=== PATIENT | female | born 1955 | race Asian ===

== ENCOUNTER 2017-08-15 18:06 | Emergency (ER) | payer OTHER ==
[2017-08-15] MEDS ORDERED: cefTRIAXone 1 GM VIAL IM STA (19:12)
[2017-08-15] MEDS ORDERED: LIDOCAINE 1% 2 ML VIAL SUBQ ONE (19:12)
--- NOTE | 2017-08-15 19:14 | ED Physician Documentation ---
History of Present Illness - Stated complaint Stated Complaint: FEMALE - Chief complaint Chief Complaint: General - History obtained from History obtained from: Patient, Family - History of Present Illness Timing: How many weeks ago (2) Pain level max: 5 Pain level now: 3 Improved by: nothing Worsened by: nothing - Additonal information Additional information: frequency and dysuria x 2 weeks. Gross hematuria today. no fevers. no back pain. no abd pain. 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 - Present Medications Home Medications: Ambulatory Orders Medication Instructions Recorded Confirmed Blood Pressure Pill 08/15/17 Cephalexin [Keflex] 500 mg PO Q6H #28 capsule 08/15/17 Cinnamon Bark [Cinnamon] 500 mg PO 08/15/17 Glucosamine Sulfate 08/15/17 Loratadine [Claritin] 10 mg PO 08/15/17 Sames 08/15/17 Tumeric 08/15/17 - Allergies Allergies/Adverse Reactions: Allergies Allergy/AdvReac Type Severity Reaction Status Date / Time No Known Drug Allergies Allergy Verified 08/15/17 18:18 - Social History Does the pt smoke?: No Smoking Status: Never smoker Does the pt drink ETOH?: No Does the pt have substance abuse?: No - Immunizations Immunizations are current?: Yes PD ED PE NORMAL - Vitals Vital signs reviewed: Yes - General General: Alert and oriented X 3, No acute distress, Well developed/nourished - HEENT HEENT: Moist mucous membranes - Neck Neck: Supple, no meningeal sign - Cardiac Cardiac: RRR, Strong equal pulses - Respiratory Respiratory: No respiratory distress, Clear bilaterally - Abdomen Abdomen: Soft, Non tender, Non distended - Back Back: No CVA TTP - Derm Derm: Warm and dry - Neuro Neuro: Alert and oriented X 3 - Psych Psych: Normal mood, Normal affect Results - Vitals Vitals: Vital Signs - 24 hr 08/15/17 08/15/17 18:16 20:17 Temperature 36.8 C 36.5 C Heart Rate 98 106 H Respiratory 18 18 Rate Blood Pressure 148/92 H 135/76 H O2 Saturation 99 97 Oxygen O2 Source Room air - Labs Labs: Laboratory Tests 08/15/17 18:41 Urine Color RED/BLOODY Urine Clarity BLOODY Urine pH 7.0 Ur Specific [place] 1.015 Urine Protein 100 H Urine Glucose (UA) NEGATIVE Urine Ketones NEGATIVE Urine Occult Blood LARGE H Urine Nitrite POSITIVE H Urine Bilirubin NEGATIVE Urine Urobilinogen 0.2 (NORMAL) Ur Leukocyte Esterase MODERATE H Urine RBC TNTC H Urine WBC >25 H Ur Squamous Epith Cells FEW Squamous Urine Bacteria Many H Ur Microscopic Review INDICATED Urine Culture Comments INDICATED PD MEDICAL DECISION MAKING - ED course Complexity details: reviewed results, re-evaluated patient, considered differential, d/w patient, d/w family ED course: Patient is a 61-year-old female presents to the emergency department with what appears to be a UTI with gross hematuria. Given IM Rocephin will place on antibiotics for home. No evidence of pyelonephritis. She is well-appearing, nontoxic. Afebrile. No vomiting. Patient counseled regarding signs and symptoms for which I believe and urgent re-evaluation would be necessary. Patient with good understanding of and agreement to plan and is comfortable going home at this time This document was made in part using voice recognition software. While efforts are made to proofread this document, sound alike and grammatical errors may occur. Departure - Departure Disposition: 01 Home, Self Care Clinical Impression: UTI (urinary tract infection) Qualifiers: Urinary tract infection type: acute cystitis Hematuria presence: with hematuria Qualified Code(s): N30.01 - Acute cystitis with hematuria Condition: Good Instructions: ED UTI Cystitis Female Follow-Up: Geri Pfeiffer MD [Primary Care Provider] - Within 1 week Prescriptions: Cephalexin [Keflex] 500 mg PO Q6H #28 capsule Comments: Take all antibiotics until gone. Return if you worsen. Discharge Date/Time: 08/15/17 20:28
[2017-08-15 19:19] LABS: BILIRUBIN,URINE NEGATIVE (NEGATIVE); CLARITY,URINE BLOODY (CLEAR); GLUCOSE, URINE (UA) NEGATIVE (NEGATIVE); KETONES,URINE (UA) NEGATIVE (NEGATIVE); LEUKOCYTE ESTERASE, URINE MODERATE (NEGATIVE); NITRITE,URINE POSITIVE (NEGATIVE); OCCULT BLOOD,URINE LARGE (NEGATIVE); PROTEIN,URINE 100 mg/dL (NEGATIVE); UROBILINOGEN,URINE 0.2 (NORMAL) E.U./dL (NORMAL)
[2017-08-15 19:24] LABS: BACTERIA,URINE Many /HPF (None Seen); RBC,URINE TNTC /HPF (0-5); SQUAMOUS EPITHELIAL CELL,UR FEW Squamous (<= Few)
[2017-08-15 20:19] VITALS: BP 135/76
== END 2017-08-15 20:28 | disposition home or self-care (01) ==
LOC: ED 18:06
DX: N30.01 Acute cystitis with hematuria (principal); I10 Essential (primary) hypertension
CPT/HCPCS: 81001; 81003; 87086; 96372; 99283

== ENCOUNTER 2020-07-12 19:45 | Emergency (ER) | payer OTHER ==
--- NOTE | 2020-07-12 20:16 | ED Physician Documentation ---
History of Present Illness - Stated complaint Stated Complaint: BLOOD IN URINE/BURNING - Chief complaint Chief Complaint: UTI - History obtained from History obtained from: Patient - History of Present Illness Timing: Today - Additonal information Additional information: 64-year-old female presents to the emergency department with chief complaint of dysuria urgency frequency and hematuria. She is concerned that she may have a urinary tract infection. She feels like she has gone to the bathroom many many times today without finding relief. She reports that she did recently have sexual intercourse with her about 3 days ago and wonders if this could be the cause. She has no fevers vomiting or flank pain. She denies any history of recurrent urinary tract infections or diabetes. No history of renal stones. Review of Systems Constitutional: reports: Reviewed and negative Ears: reports: Reviewed and negative Nose: reports: Reviewed and negative Throat: reports: Reviewed and negative Cardiac: reports: Reviewed and negative Respiratory: reports: Reviewed and negative GI: reports: Reviewed and negative : reports: Dysuria, Frequency, Hematuria Musculoskeletal: reports: Reviewed and negative Neurologic: reports: Reviewed and negative Psychiatric: reports: Reviewed and negative PD PAST MEDICAL HISTORY - Past Medical History Past Medical History: Yes Cardiovascular: Hypertension - Past Surgical History 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 - Present Medications Home Medications: Ambulatory Orders Medication Instructions Recorded Confirmed Blood Pressure Pill 08/15/17 Cinnamon Bark [Cinnamon] 500 mg PO 08/15/17 Sames 08/15/17 Tumeric 08/15/17 Cephalexin [Keflex] 500 mg PO TID #21 capsule 07/12/20 Estradiol 0.05 mg Patch [Climara 1 patch TOP UD 07/12/20 07/12/20 0.05 mg] Oxybutynin Chloride [Ditropan Xl] 10 mg PO DAILY 07/12/20 07/12/20 - Allergies Allergies/Adverse Reactions: Allergies Allergy/AdvReac Type Severity Reaction Status Date / Time No Known Drug Allergies Allergy Verified 07/12/20 19:50 - Social History Does the pt smoke?: No Smoking Status: Never smoker Does the pt drink ETOH?: No Does the pt have substance abuse?: No - Immunizations Immunizations are current?: Yes - POLST Patient has POLST: No PD ED PE NORMAL - General General: Alert and oriented X 3, No acute distress, Well developed/nourished - HEENT HEENT: PERRL - Neck Neck: Supple, no meningeal sign, No adenopathy - Cardiac Cardiac: RRR, No murmur, Strong equal pulses - Respiratory Respiratory: No respiratory distress, Clear bilaterally - Abdomen Abdomen: Normal bowel sounds, Soft. No: Non tender (Mild suprapubic tenderness to palpation. No flank or CVA tenderness. 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 Eye Opening: Spontaneous Motor: Obeys Commands Verbal: Oriented GCS Score: 15 Results - Vitals Vitals: Vital Signs - 24 hr 07/12/20 07/12/20 19:50 19:54 Temperature 36.7 C 36.7 C Heart Rate 79 79 Respiratory 16 16 Rate Blood Pressure 156/91 H 156/91 H O2 Saturation 97 97 Oxygen O2 Source Room air - Labs Labs: Laboratory Tests 07/12/20 19:54 Urine Color DARK YELLOW Urine Clarity CLOUDY Urine pH 6.0 Ur Specific [place] 1.015 Urine Protein TRACE Urine Glucose (UA) NEGATIVE Urine Ketones NEGATIVE Urine Occult Blood LARGE H Urine Nitrite NEGATIVE Urine Bilirubin NEGATIVE Urine Urobilinogen 0.2 (NORMAL) Ur Leukocyte Esterase SMALL H Urine RBC TNTC H Urine WBC 6-10 H Ur Squamous Epith Cells RARE Squamous Urine Bacteria Rare Ur Microscopic Review INDICATED Urine Culture Comments INDICATED PD MEDICAL DECISION MAKING - ED course Complexity details: reviewed results, re-evaluated patient, considered differential, d/w patient ED course: 64-year-old female presents the emergency department with chief complaint of dysuria urgency frequency and sensation of incomplete bladder emptying. Symptoms began this afternoon. She was recently sexually active. She has no fevers flank pain or vomiting. My suspicion for acute pyelonephritis is low. However her urine today is quite suggestive of acute infection. First dose of Keflex given here in the emergency department prescription written upon discharge. emergent return precautions discussed for worsening symptoms. Departure - Departure Disposition: 01 Home, Self Care Clinical Impression: Acute cystitis Qualifiers: Hematuria presence: with hematuria Qualified Code(s): N30.01 - Acute cystitis with hematuria Condition: Stable Record reviewed to determine appropriate education?: Yes Instructions: ED UTI Cystitis Female Follow-Up: Geri Pfeiffer MD [Primary Care Provider] - Prescriptions: Cephalexin [Keflex] 500 mg PO TID #21 capsule Comments: It does appear as though you have an infection in your urine. We have given you your first dose of antibiotic tonight in the emergency department. Tomorrow morning please fill the prescription for the antibiotic and begin taking as directed. It is important to always void after sexual intercourse this can help reduce the frequency of urinary tract infections. Drink lots of water and stay well hydrated. Return to the Emergency department for fevers, uncontrolled vomiting or suddenly severe abdominal pain or if your symptoms fail to improve
[2020-07-12 20:21] LABS: BILIRUBIN,URINE NEGATIVE (NEGATIVE); GLUCOSE, URINE (UA) NEGATIVE (NEGATIVE); KETONES,URINE (UA) NEGATIVE (NEGATIVE); LEUKOCYTE ESTERASE, URINE SMALL (NEGATIVE); NITRITE,URINE NEGATIVE (NEGATIVE); OCCULT BLOOD,URINE LARGE (NEGATIVE); PROTEIN,URINE TRACE mg/dL (NEGATIVE); UROBILINOGEN,URINE 0.2 (NORMAL) E.U./dL (NORMAL)
[2020-07-12 20:39] LABS: BACTERIA,URINE Rare /HPF (None Seen); CLARITY,URINE CLOUDY (CLEAR); RBC,URINE TNTC /HPF (0-5); SQUAMOUS EPITHELIAL CELL,UR RARE Squamous (<= Few)
[2020-07-12] MEDS ORDERED: cephALEXin 250 MG CAPSULE PO STA (20:45)
[2020-07-12] MEDS ORDERED: CEPHALEXIN 250 MG Prepack 8 CAP BOTTLE PO STA (20:48)
[2020-07-12 20:58] VITALS: BP 150/88
== END 2020-07-12 20:57 | disposition home or self-care (01) ==
LOC: ED 19:45
DX: N30.01 Acute cystitis with hematuria (principal)
CPT/HCPCS: 81001; 87086; 87181; 99283; 99284; A9270; 81003

== ENCOUNTER 2020-10-12 11:31 | Outpatient (CLI) | payer OTHER | END 2020-10-12 11:32 | disposition EMS.NT | LOC: EMS 11:31 | DX: R53.83 Other fatigue (principal); R42 Dizziness and giddiness ==

== ENCOUNTER 2020-10-12 19:03 | Emergency (ER) | payer OTHER ==
--- NOTE | 2020-10-12 19:15 | ED Physician Documentation ---
History of Present Illness - Stated complaint Stated Complaint: DIZZY,VOMITING - Chief complaint Chief Complaint: General - History obtained from History obtained from: Patient - History of Present Illness Timing: Enter time (16:00), Yesterday Pain level max: 0 Pain level now: 0 Improved by: no ameliorating factors Worsened by: no exacerbating factors; episodic but she has not noticed a positional/movement component - Additonal information Additional information: c/o sudden onset dizziness described as sensation of room spinning around her even when at rest lying still. this has been episodic since 4 PM yesterday. She also c/o nausea and vomiting although she does not feel that the nausea and vomiting are only present when she is dizzy. She was feeling better today enough that she went to the grocery store but when loading groceries into her car, she again had sudden severe dizziness with sensation of the surroundings spinning around her and she needed help from just to ambulate back in the car. Denies h/o similar symptoms. She had her first COVID vaccine 4 days ago. Review of Systems Constitutional: denies: Fever, Chills, Sweats Eyes: reports: Reviewed and negative Ears: reports: Reviewed and negative Cardiac: reports: Reviewed and negative Respiratory: reports: Reviewed and negative GI: reports: Nausea, Vomiting. 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 - Present Medications Home Medications: Ambulatory Orders Medication Instructions Recorded Confirmed Blood Pressure Pill 08/15/17 Cinnamon Bark [Cinnamon] 500 mg PO 08/15/17 Sames 08/15/17 Tumeric 08/15/17 Estradiol 0.05 mg Patch [Climara 1 patch TOP UD 07/12/20 10/12/20 0.05 mg] Oxybutynin Chloride [Ditropan Xl] 10 mg PO DAILY 07/12/20 10/12/20 cephALEXin [Keflex] 500 mg PO TID #21 capsule 07/12/20 Meclizine [Antivert] 25 mg PO Q6H PRN #14 tablet 10/12/20 Ondansetron Odt [Zofran] 4 mg TL Q6H PRN #14 tablet 10/12/20 - Allergies Allergies/Adverse Reactions: Allergies Allergy/AdvReac Type Severity Reaction Status Date / Time No Known Drug Allergies Allergy Verified 10/12/20 19:13 - Social History Does the pt smoke?: No Smoking Status: Never smoker Does the pt drink ETOH?: No Does the pt have substance abuse?: No - Immunizations Immunizations are current?: Yes - POLST Patient has POLST: No PD ED PE NORMAL - Vitals Vital signs reviewed: Yes - General General: Alert and oriented X 3, No acute distress, Well developed/nourished - HEENT HEENT: PERRL, EOMI - Neck Neck: Supple, no meningeal sign - Cardiac Cardiac: RRR, No murmur, No gallop, No rub - Respiratory Respiratory: No respiratory distress, Clear bilaterally - Abdomen Abdomen: Soft, Non tender - Neuro Neuro: Alert and oriented X 3, 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, No motor deficit, No sensory deficit, Normal speech Eye Opening: Spontaneous Motor: Obeys Commands Verbal: Oriented GCS Score: 15 Results - Vitals Vitals: Vital Signs - 24 hr 10/12/20 10/12/20 10/12/20 19:07 19:13 21:13 Temperature 37.1 C 37.1 C 37.1 C Heart Rate 72 72 66 Respiratory 16 16 16 Rate Blood Pressure 156/86 H 156/86 H 136/79 H O2 Saturation 95 95 97 10/12/20 10/12/20 21:34 22:00 Temperature 37.1 C 37.1 C Heart Rate 68 68 Respiratory 16 16 Rate Blood Pressure 142/82 H 142/82 H O2 Saturation 96 96 Oxygen O2 Source Room air - EKG (time done) No standard instances Rate: Rate (enter#) (77) Rhythm: NSR [place]: Normal Intervals: Normal [place] QRS: Normal Ischemia: Normal ST segments - Labs Labs: Laboratory Tests 10/12/20 10/12/20 19:41 19:41 WBC 7.1 RBC 4.94 Hgb 14.4 Hct 44.0 MCV 89.1 MCH 29.1 MCHC 32.7 RDW 12.5 Plt Count 337 MPV 10.4 Neut # (Auto) 3.8 Lymph # (Auto) 2.7 [place] # (Auto) 0.4 Eos # (Auto) 0.1 Baso # (Auto) 0.0 Absolute Nucleated RBC 0.00 Nucleated RBC % 0.0 Sodium 136 Potassium 3.6 Chloride 99 L Carbon Dioxide 24 Anion Gap 13.0 BUN 11 Creatinine 0.6 Estimated GFR (MDRD) 101 Glucose 102 H Calcium 9.5 Total Bilirubin 0.6 AST 25 ALT 31 Alkaline Phosphatase 44 Total Protein 7.1 Albumin 3.9 Globulin 3.2 Albumin/Globulin Ratio 1.2 Lipase 24 PD MEDICAL DECISION MAKING - ED course Complexity details: reviewed results, re-evaluated patient, considered differential, d/w patient ED course: HPI is suggestive of peripheral vertigo. There are no focal neurologic complai nts nor findings to suggest alternate diagnosis such as CVA/TIA. She reports improvement on reevaluation after PO antivert and IV fluids and IV zofran Departure - Departure Disposition: 01 Home, Self Care Clinical Impression: Vertigo Condition: Good Instructions: ED Dizziness UKO, Meclizine, ED Vertigo Unspecified Follow-Up: Geri Pfeiffer MD [Primary Care Provider] - Within 1 week Prescriptions: Meclizine [Antivert] 25 mg PO Q6H PRN #14 tablet PRN Reason: Dizziness Ondansetron Odt [Zofran] 4 mg TL Q6H PRN #14 tablet PRN Reason: Nausea / Vomiting Forms: Activity restrictions Discharge Date/Time: 10/12/20 22:01
[2020-10-12] MEDS ORDERED: MECLIZINE 12.5 MG TABLET PO STA (19:32)
[2020-10-12] MEDS ORDERED: SODIUM CHLORIDE 0.9% 1,000 ML IV STA (19:32)
[2020-10-12] MEDS ORDERED: ONDANSETRON 4 MG/2 ML VIAL IVP STA ×2 (19:32→21:22)
[2020-10-12 19:44] LABS: BASOPHILS % (AUTO) 0.4 %; EOSINOPHILS # (AUTO) 0.1 10^3/uL (0.0-0.7); EOSINOPHILS % (AUTO) 1.3 %; HGB - HEMOGLOBIN 14.4 g/dL (12.0-16.0); LYMPHOCYTES # (AUTO) 2.7 10^3/uL (1.5-3.5); LYMPHOCYTES % (AUTO) 38.6 %; MEAN CORPUSCULAR HEMOGLOBIN 29.1 pg (27.0-31.0); MEAN CORPUSCULAR HGB CONC 32.7 g/dL (32.0-36.0); MEAN CORPUSCULAR VOLUME 89.1 fL (81.0-99.0); MEAN PLATELET VOLUME 10.4 fL (7.9-10.8); MONOCYTES # (AUTO) 0.4 10^3/uL (0.0-1.0); MONOCYTES % (AUTO) 5.5 %; NEUTROPHILS # (AUTO) 3.8 10^3/uL (1.5-6.6); NEUTROPHILS % (AUTO) 54.1 %; PLT - PLATELET COUNT 337 10^3/uL (130-450); RED BLOOD COUNT 4.94 10^6/uL (4.20-5.40); RED CELL DISTRIBUTION WIDTH 12.5 % (12.0-15.0); WHITE BLOOD COUNT 7.1 x10^3/uL (4.8-10.8)
[2020-10-12 19:58] LABS: ALBUMIN 3.9 g/dL (3.2-5.5); ALBUMIN/GLOBULIN RATIO 1.2 (1.0-2.2); BILIRUBIN,TOTAL 0.6 mg/dL (0.2-1.0); CALCIUM 9.5 mg/dL (8.5-10.3); CREATININE 0.6 mg/dL (0.4-1.0); POTASSIUM 3.6 mmol/L (3.5-5.0); TOTAL PROTEIN 7.1 g/dL (6.7-8.2)
[2020-10-12 21:35] VITALS: BP 142/82
== END 2020-10-12 22:01 | disposition home or self-care (01) ==
LOC: ED 19:03
DX: R42 Dizziness and giddiness (principal)
CPT/HCPCS: 36415; 80053; 83690; 85025; 93005; 96361; 96374; 96376; 99283; 99284; A9270

== ENCOUNTER 2022-01-07 21:17 | Emergency (ER) | payer OTHER ==
[2022-01-07] MEDS ORDERED: PHENAZOPYRIDINE 100 MG TABLET PO STA (21:51)
[2022-01-07 21:55] LABS: BILIRUBIN,URINE NEGATIVE (NEGATIVE); GLUCOSE, URINE (UA) NEGATIVE (NEGATIVE); KETONES,URINE (UA) NEGATIVE (NEGATIVE); LEUKOCYTE ESTERASE, URINE NEGATIVE (NEGATIVE); NITRITE,URINE NEGATIVE (NEGATIVE); OCCULT BLOOD,URINE TRACE-INTA (NEGATIVE); PROTEIN,URINE NEGATIVE (NEGATIVE); UROBILINOGEN,URINE 0.2 (NORMAL) E.U./dL (NORMAL)
[2022-01-07 22:01] LABS: CLARITY,URINE CLEAR (CLEAR); HCG UR QUAL NEGATIVE
[2022-01-07 22:30] LABS: BASOPHILS % (AUTO) 0.4 %; EOSINOPHILS # (AUTO) 0.1 10^3/uL (0.0-0.7); EOSINOPHILS % (AUTO) 1.3 %; HCT - HEMATOCRIT 42.6 % (37.0-47.0); HGB - HEMOGLOBIN 14.2 g/dL (12.0-16.0); LYMPHOCYTES # (AUTO) 3.3 10^3/uL (1.5-3.5); LYMPHOCYTES % (AUTO) 38.7 %; MEAN CORPUSCULAR HEMOGLOBIN 29.8 pg (27.0-31.0); MEAN CORPUSCULAR HGB CONC 33.3 g/dL (32.0-36.0); MEAN CORPUSCULAR VOLUME 89.3 fL (81.0-99.0); MEAN PLATELET VOLUME 10.6 fL (7.9-10.8); MONOCYTES # (AUTO) 0.4 10^3/uL (0.0-1.0); MONOCYTES % (AUTO) 4.5 %; NEUTROPHILS # (AUTO) 4.6 10^3/uL (1.5-6.6); PLT - PLATELET COUNT 313 10^3/uL (130-450); RED BLOOD COUNT 4.77 10^6/uL (4.20-5.40); RED CELL DISTRIBUTION WIDTH 12.5 % (12.0-15.0); WHITE BLOOD COUNT 8.4 x10^3/uL (4.8-10.8)
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
[2022-01-07 22:43] LABS: ALBUMIN/GLOBULIN RATIO 1.3 (1.0-2.2); BILIRUBIN,TOTAL 0.3 mg/dL (0.2-1.0); CALCIUM 9.4 mg/dL (8.5-10.3); CREATININE 0.6 mg/dL (0.4-1.0); POTASSIUM 3.7 mmol/L (3.5-5.0); TOTAL PROTEIN 7.1 g/dL (6.7-8.2)
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
[2022-01-07 23:49] VITALS: BP 138/87
== END 2022-01-07 23:48 | disposition home or self-care (01) ==
LOC: ED 21:17
DX: R10.9 Unspecified abdominal pain (principal); R30.0 Dysuria
CPT/HCPCS: 36415; 74176; 80053; 81003; 81025; 83690; 85025; 99282; 99284; A9270; 81001; 87086

== ENCOUNTER 2022-01-31 12:58 | Emergency (ER) | payer OTHER ==
[2022-01-31] MEDS ORDERED: PHENAZOPYRIDINE 100 MG TABLET PO STA (14:15)
--- NOTE | 2022-01-31 14:19 | ED Physician Documentation ---
PD HPI FEMALE - Stated complaint Stated Complaint: BLEEDING - Chief complaint Chief Complaint: UTI - History obtained from History obtained from: Patient - History of Present Illness Timing - onset: How many days ago (2) Timing - duration: Days (2) Timing - details: Abrupt onset, Still present Associated symptoms: Dysuria, Hematuria. 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 Had cystoscopy several months ago without any abnormal findings per patient.) Recently seen: Emergency Dept (1 month ago for similar, with negative UA for infection. Improved with pyridium.) Review of Systems Constitutional: reports: Chills. denies: Fever Nose: denies: Rhinorrhea / runny nose, Congestion Throat: denies: Sore throat Respiratory: denies: Cough GI: reports: Abdominal Pain (mild right lower cramping.). denies: Nausea, Vomiting : reports: Dysuria, Hematuria. 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 - Present Medications Home Medications: Ambulatory Orders Medication Instructions Recorded Confirmed Blood Pressure Pill 08/15/17 Cinnamon Bark [Cinnamon] 500 mg PO 08/15/17 Sames 08/15/17 Tumeric 08/15/17 Estradiol 0.05 mg Patch [Climara 1 patch TOP UD 07/12/20 10/12/20 0.05 mg] Oxybutynin Chloride [Ditropan Xl] 10 mg PO DAILY 07/12/20 10/12/20 cephALEXin [Keflex] 500 mg PO TID #21 capsule 07/12/20 Meclizine [Antivert] 25 mg PO Q6H PRN #14 tablet 10/12/20 Ondansetron Odt [Zofran] 4 mg TL Q6H PRN #14 tablet 10/12/20 Phenazopyridine HCl [Pyridium] 200 mg PO TID PRN #6 tablet 01/07/22 Phenazopyridine HCl [Pyridium] 100 mg PO TID PRN #15 tablet 01/31/22 Sulfamethox/Trimeth 800/160 1 each PO BID #14 tablet 01/31/22 [Bactrim Ds 800/160] - Allergies Allergies/Adverse Reactions: Allergies Allergy/AdvReac Type Severity Reaction Status Date / Time No Known Drug Allergies Allergy Verified 01/31/22 13:18 - Social History Does the pt smoke?: No Smoking Status: Never smoker Does the pt drink ETOH?: No Does the pt have substance abuse?: No - Immunizations Immunizations are current?: Yes - POLST Patient has POLST: No PD ED PE NORMAL - Vitals Vital signs reviewed: Yes - General General: Alert and oriented X 3, No acute distress, Well developed/nourished - Abdomen Abdomen: Normal bowel sounds, Soft, Non distended, No organomegaly, Other (minimal tenderness without guarding right lower abdomen. ) - Back Back: No CVA TTP - Derm Derm: Normal color, Warm and dry - Neuro Neuro: Alert and oriented X 3, No motor deficit, Normal speech Results - Vitals Vitals: Vital Signs - 24 hr 01/31/22 01/31/22 13:13 15:16 Temperature 36.3 C L 36.3 C L Heart Rate 87 79 Respiratory 18 12 Rate Blood Pressure 124/90 H 117/85 H O2 Saturation 98 96 Oxygen O2 Source Room air - Labs Labs: Laboratory Tests 01/31/22 01/31/22 01/31/22 13:28 14:17 14:17 WBC 9.4 RBC 5.17 Hgb 15.1 Hct 44.5 MCV 86.1 MCH 29.2 MCHC 33.9 RDW 12.1 Plt Count 363 MPV 10.0 Neut # (Auto) 6.7 H Lymph # (Auto) 2.1 [place] # (Auto) 0.5 Eos # (Auto) 0.1 Baso # (Auto) 0.0 Absolute Nucleated RBC 0.00 Nucleated RBC % 0.0 Sodium 135 Potassium 3.9 Chloride 99 L Carbon Dioxide 25 Anion Gap 11.0 BUN 11 Creatinine 0.6 Estimated GFR (MDRD) 101 Glucose 119 H Calcium 9.8 Total Bilirubin 0.6 AST 29 ALT 38 Alkaline Phosphatase 51 Total Protein 7.4 Albumin 4.2 Globulin 3.2 Albumin/Globulin Ratio 1.3 Lipase 28 Urine Color YELLOW Urine Clarity HAZY Urine pH 7.5 Ur Specific [place] 1.010 Urine Protein NEGATIVE Urine Glucose (UA) NEGATIVE Urine Ketones NEGATIVE Urine Occult Blood LARGE H Urine Nitrite NEGATIVE Urine Bilirubin NEGATIVE Urine Urobilinogen 0.2 (NORMAL) Ur Leukocyte Esterase SMALL H Urine RBC TNTC H Urine WBC >25 H Urine WBC Clumps PRESENT Ur Epithelial Cells FEW Renal Tubular Ur Squamous Epith Cells MOD Squamous H Urine Bacteria Moderate H Ur Microscopic Review INDICATED Urine Culture Comments NOT INDICATED PD MEDICAL DECISION MAKING - ED course Complexity details: reviewed results (UA c/w UTI. It does have some squamous cells so not auto cultured, so I added urine culture separate. Her symptoms are very c/w UTI. ), considered differential, d/w patient Departure - Departure Disposition: Home, Self Care Clinical Impression: Dysuria UTI (urinary tract infection) Qualifiers: Urinary tract infection type: acute cystitis Hematuria presence: with hematuria Qualified Code(s): N30.01 - Acute cystitis with hematuria Condition: Stable Record reviewed to determine appropriate education?: Yes Instructions: ED UTI Cystitis Female Prescriptions: Sulfamethox/Trimeth 800/160 [Bactrim Ds 800/160] 1 each PO BID #14 tablet Phenazopyridine HCl [Pyridium] 100 mg PO TID PRN #15 tablet PRN Reason: Abdominal Pain Comments: BuckleYour urine sample does show signs of infection. The urine culture will result in 2 to 3 days. We will start on a antibiotic for bladder infection along with the phenazopyridine to help with urinary discomfort. If the urine culture shows any signs of resistance or such and we need to change your antibiotic, we will give you a call. On your way out from the ER, be sure to check in at the front end engineer and make sure we have your correct cell phone number. I transmitted prescriptions for Bactrim and phenazopyridine to [facility] pharmacy in [place]. Stay well-hydrated. Tylenol if needed for pains. Follow-up with your urologist to discuss frequent bladder infections and any other particular treatments to reduce the frequency your chances. Discharge Date/Time: 01/31/22 15:16
[2022-01-31 14:26] LABS: BILIRUBIN,URINE NEGATIVE (NEGATIVE); GLUCOSE, URINE (UA) NEGATIVE (NEGATIVE); KETONES,URINE (UA) NEGATIVE (NEGATIVE); LEUKOCYTE ESTERASE, URINE SMALL (NEGATIVE); NITRITE,URINE NEGATIVE (NEGATIVE); OCCULT BLOOD,URINE LARGE (NEGATIVE); PH,URINE 7.5 PH (5.0-7.5); PROTEIN,URINE NEGATIVE (NEGATIVE); UROBILINOGEN,URINE 0.2 (NORMAL) E.U./dL (NORMAL)
[2022-01-31 14:28] LABS: BASOPHILS % (AUTO) 0.2 %; EOSINOPHILS # (AUTO) 0.1 10^3/uL (0.0-0.7); EOSINOPHILS % (AUTO) 0.5 %; HCT - HEMATOCRIT 44.5 % (37.0-47.0); HGB - HEMOGLOBIN 15.1 g/dL (12.0-16.0); LYMPHOCYTES # (AUTO) 2.1 10^3/uL (1.5-3.5); LYMPHOCYTES % (AUTO) 22.5 %; MEAN CORPUSCULAR HEMOGLOBIN 29.2 pg (27.0-31.0); MEAN CORPUSCULAR HGB CONC 33.9 g/dL (32.0-36.0); MEAN CORPUSCULAR VOLUME 86.1 fL (81.0-99.0); MONOCYTES # (AUTO) 0.5 10^3/uL (0.0-1.0); MONOCYTES % (AUTO) 5.2 %; NEUTROPHILS # (AUTO) 6.7 10^3/uL (1.5-6.6); NEUTROPHILS % (AUTO) 71.2 %; PLT - PLATELET COUNT 363 10^3/uL (130-450); RED BLOOD COUNT 5.17 10^6/uL (4.20-5.40); RED CELL DISTRIBUTION WIDTH 12.1 % (12.0-15.0); WHITE BLOOD COUNT 9.4 x10^3/uL (4.8-10.8)
[2022-01-31 14:36] LABS: ALBUMIN 4.2 g/dL (3.2-5.5); ALBUMIN/GLOBULIN RATIO 1.3 (1.0-2.2); BILIRUBIN,TOTAL 0.6 mg/dL (0.2-1.0); CALCIUM 9.8 mg/dL (8.5-10.3); CREATININE 0.6 mg/dL (0.4-1.0); POTASSIUM 3.9 mmol/L (3.5-5.0); TOTAL PROTEIN 7.4 g/dL (6.7-8.2)
[2022-01-31 14:39] LABS: BACTERIA,URINE Moderate /HPF (None Seen); CLARITY,URINE HAZY (CLEAR); EPITHELIAL CELLS,UR FEW Renal Tubular /HPF (<= Few); RBC,URINE TNTC /HPF (0-5); SQUAMOUS EPITHELIAL CELL,UR MOD Squamous (<= Few); WBC CLUMPS,URINE PRESENT; WBC,URINE >25 /HPF (0-5)
[2022-01-31] MEDS ORDERED: SULFAMETH/TRIMETH DS 800/160 MG TABLET PO STA (15:09)
[2022-01-31 15:17] VITALS: BP 117/85
== END 2022-01-31 15:16 | disposition home or self-care (01) ==
LOC: ED 12:58
DX: N30.01 Acute cystitis with hematuria (principal); I10 Essential (primary) hypertension
CPT/HCPCS: 36415; 80053; 81001; 83690; 85025; 87086; 99282; 99283; A9270; 81003